=== PATIENT | male | born 1945 | race Caucasian/White ===

== ENCOUNTER 2022-04-14 20:03 | Inpatient (IN) | payer OTHER, MEDICARE ==
[~2022-04-14] VITALS: Ht 198.1 cm; Wt 102.1 kg
[2022-04-14 20:37] VITALS: BP_SYST 153
--- NOTE | 2022-04-14 22:06 | NUR ---
Patient to ER bed 3 to gown for evaluation. Side rails up. Report given to ELAINA ZALDIVAR
--- NOTE | 2022-04-14 22:30 | NUR ---
CHICHI Pascual at bedside examining patient.
[2022-04-15] VITALS (7 sets, daily range): BP systolic 104–148
[2022-04-15 00:45] LABS: BASOPHILS # (AUTO) 0.1 K/uL (0.0-0.2); BASOPHILS % (AUTO) 0.4 % (0.0-2.0); EOSINOPHILS % (AUTO) 0.1 % (0.0-4.0); HEMATOCRIT 39.9 % (36-54); HEMOGLOBIN 13.3 g/dL (14.0-18.0); LYMPHOCYTES # (AUTO) 0.5 K/uL (1.0-5.5); LYMPHOCYTES % (AUTO) 3.9 % (20.5-51.5); MEAN CORPUSCULAR HEMOGLOBIN 30 pg (27-31); MEAN CORPUSCULAR HGB CONC 33 % (32-36); MEAN CORPUSCULAR VOLUME 89 fL (79.0-98.0); MONOCYTES # (AUTO) 0.9 K/uL (0.0-1.0); MONOCYTES % (AUTO) 6.7 % (1.7-9.3); NEUTROPHILS # (AUTO) 12.3 K/uL (1.8-7.7); NEUTROPHILS % (AUTO) 88.9 % (40.0-70.0); PLATELET COUNT (AUTO) 185 K/uL (130-430); RED BLOOD CELL COUNT(AUTO) 4.49 MIL/uL (4.2-6.2); RED CELL DISTRIBUTION WIDTH 15.2 % (9.0-15.0); WHITE BLOOD COUNT (AUTO) 13.9 K/uL (4.8-10.8)
[2022-04-15 00:56] LABS: BILIRUBIN,URINE NEGATIVE (NEGATIVE); BLOOD, URINE NEGATIVE (NEGATIVE); CLARITY/URINE CLEAR (CLEAR); COLOR,URINE YELLOW (YELLOW); GLUCOSE,URINE NEGATIVE (NEGATIVE); KETONES,URINE 1+ (NEGATIVE); LEUKOCYTE ESTERASE ,URINE NEGATIVE (NEGATIVE); NITRITE, URINE NEGATIVE (NEGATIVE); PH,URINE 5.5 (5.0-8.0); PROTEIN URINE TRACE (NEGATIVE); UROBILINOGEN,URINE 0.2 (0.2-1.0)
[2022-04-15 01:02] LABS: ANION GAP 9 (5-15); CALCIUM 8.6 mg/dL (8.4-11.0); CHLORIDE 100 mmol/L (98-107); GLUCOSE 131 mg/dL (70-99); POTASSIUM 4.3 mmol/L (3.5-5.1); SODIUM SERUM 136 mmol/L (136-145); UREA NITROGEN, BLOOD 31 mg/dL (8-21)
[2022-04-15] MEDS ORDERED: ONDANSETRON HCL 4 MG/2 ML VIAL IVP ONE ×2 (01:15)
[2022-04-15] MEDS ORDERED: MORPHINE 2 MG/ML INJ. SYRINGE IVP ONE ×2 (01:15)
[2022-04-15] MEDS ORDERED: NACL 0.9% 1,000 ML IV ONE ×2 (01:15)
[2022-04-15] MEDS ORDERED: NACL 0.9% 2,000 ML IV ONE (01:15)
[2022-04-15] MEDS ORDERED: PIPERACILLIN/TAZO 3.375 GM in NS 50 ML IV ONE (01:15)
[2022-04-15 01:17] LABS: ALANINE AMINOTRANSFERASE 17 U/L (12-78); ALBUMIN 3.5 g/dL (3.4-4.8); ASPARTATE AMINOTRANSFERASE 20 U/L (10-37); LIPASE 73 U/L (73-393); TOTAL BILIRUBIN 0.7 mg/dL (0.0-1.0)
[2022-04-15] MEDS ORDERED: KCL 20 mEq in D5NS 1000 mL 1,000 ML IV SCH (01:30)
[2022-04-15] MEDS ORDERED: HYDROmorphone 1 MG/ML INJ. CARTRIDGE IVP PRN (01:30)
[2022-04-15] MEDS ORDERED: PIPERACILLIN/TAZOBACTAM 3.375 GM/VIAL (ZOSYN) IV ONE (01:33)
--- NOTE | 2022-04-15 02:05 | NUR ---
Pt C/O RUQ pain Pt in apparent pain Pt medicated and all needs met at this time AOX4 VSS NAD at this time Will continue to monitor
--- NOTE | 2022-04-15 03:05 | NUR ---
Admit bed requested Patient will be admitted to care of . Admitted to TELE unit. Diagnosis NEPHROTIC APPENDICITIS Inpatient (Yes or No) Y Observation (Yes or No) N Orientation concerns or request close to nursing station (Yes or No) N Covid Status PENDING On vent or bipap N Isolation requirements N Needs a sitter N From Home (Yes or if No enter name of facility) Y Requires Dialysis (Yes or No) N Med Rec Completed (Yes of No) Y
--- NOTE | 2022-04-15 04:20 | NUR ---
Pt prep for OR transport Pt cleansed w/ CHG Pt resting comfortably in bed at this time VSS NAD Will continue to monitor
[2022-04-15] MEDS ORDERED: BUPIVACAINE LIPOSOME/PF 266 MG/20 ML VIAL INFIL ONE (04:50)
[2022-04-15] MEDS ORDERED: SEVOFLURANE 15 MIN GAS INH ONE (05:25)
[2022-04-15] MEDS ORDERED: LABETALOL 100 MG/ 20ML VIAL ONE (05:25)
[2022-04-15] MEDS ORDERED: ROCURONIUM BROMIDE 10 MG/ML (ZEMURON) ONE (05:25)
[2022-04-15] MEDS ORDERED: NS 1000 ML IV.SOLN IV ONE (05:25)
[2022-04-15] MEDS ORDERED: MIDAZOLAM HCL 2 MG/2 ML VIAL (VERSED) ONE (05:25)
[2022-04-15] MEDS ORDERED: fentaNYL CITRATE/PF 100 MCG/2 ML AMP ONE ×2 (05:25→06:54)
[2022-04-15] MEDS ORDERED: PROPOFOL 200MG/ 20ML VIAL (DIPRIVAN) IV ONE (05:25)
--- NOTE | 2022-04-15 05:28 | NUR ---
Pt admitted for surgery Consent for surgery and Blood transfusion obtained AOX4 VSS NAD at this time Pt transported to OR via gurgey by 2 OR nurses
[2022-04-15] MEDS ORDERED: METOCLOPRAMIDE HCL 10 MG/2 ML VIAL IVP PRN (06:00)
[2022-04-15] MEDS ORDERED: ONDANSETRON HCL 4 MG/2 ML VIAL IVP PRN (06:00)
[2022-04-15] MEDS ORDERED: fentaNYL CITRATE/PF 100 MCG/2 ML AMP IVP PRN (06:00)
[2022-04-15] MEDS ORDERED: LR 1,000 ML IV SCH (06:45)
[2022-04-15] MEDS ORDERED: NALOXONE HCL 0.4 MG/ML AMP (NARCAN) IVP PRN (06:45)
[2022-04-15] MEDS: fentaNYL CITRATE/PF 100 MCG/2 ML AMP IVP PRN ×2 (06:57→07:18)
[2022-04-15 07:10] LABS: BASOPHILS % (AUTO) 0.3 % (0.0-2.0); EOSINOPHILS % (AUTO) 0.1 % (0.0-4.0); HEMATOCRIT 37.7 % (36-54); HEMOGLOBIN 12.6 g/dL (14.0-18.0); LYMPHOCYTES # (AUTO) 0.8 K/uL (1.0-5.5); LYMPHOCYTES % (AUTO) 6.8 % (20.5-51.5); MEAN CORPUSCULAR HEMOGLOBIN 30 pg (27-31); MEAN CORPUSCULAR HGB CONC 34 % (32-36); MEAN CORPUSCULAR VOLUME 89 fL (79.0-98.0); MONOCYTES # (AUTO) 0.8 K/uL (0.0-1.0); MONOCYTES % (AUTO) 6.4 % (1.7-9.3); NEUTROPHILS # (AUTO) 10.3 K/uL (1.8-7.7); NEUTROPHILS % (AUTO) 86.4 % (40.0-70.0); PLATELET COUNT (AUTO) 165 K/uL (130-430); RED BLOOD CELL COUNT(AUTO) 4.25 MIL/uL (4.2-6.2); RED CELL DISTRIBUTION WIDTH 15.2 % (9.0-15.0); WHITE BLOOD COUNT (AUTO) 11.9 K/uL (4.8-10.8)
[2022-04-15 07:17] LABS: ANION GAP 11 (5-15); CALCIUM 7.9 mg/dL (8.4-11.0); CHLORIDE 105 mmol/L (98-107); CREATININE 1.16 mg/dL (0.55-1.30); GLUCOSE 128 mg/dL (70-99); POTASSIUM 4.2 mmol/L (3.5-5.1); SODIUM SERUM 138 mmol/L (136-145); UREA NITROGEN, BLOOD 26 mg/dL (8-21)
[2022-04-15] MEDS ORDERED: PIPERACILLIN/TAZO 3.375 GM in NS 50 ML IV SCH (08:00)
--- NOTE | 2022-04-15 08:10 | NUR ---
Initial Notes Patient admitted to unit, came from surgery. appendectomy. Pt is awake, alert, and oriented. Denies any SOB. Breathing is even and non labored. Spo2 on 94% on RA. No F/C. Pt states pain only when moving, pain is tolerable at the moment. Pt oriented to room, call light, incentive spirometer use, and JOSÉ MIGUEL care. Safety precautions in place. pt aware to call for assistance.
--- NOTE | 2022-04-15 09:00 | NUR ---
JOSÉ MIGUEL drain Empty JOSÉ MIGUEL with serosanguineous drainage. Teach patient on how to empty drain. Verbalize understanding.
[2022-04-15] MEDS: HYDROmorphone 1 MG/ML INJ. CARTRIDGE IVP PRN ×3 (10:03→21:17)
[2022-04-15] MEDS: PIPERACILLIN/TAZO 3.375/DEX-IS 50 ML IV SCH ×3 (12:00→23:27)
[2022-04-15] MEDS: KCL 20 mEq in D5NS 1000 mL 1,000 ML IV SCH ×2 (12:01→23:32)
[2022-04-15] MEDS ORDERED: CARV25TA55 PO (12:18)
[2022-04-15] MEDS ORDERED: TRAZ-251 PO (12:18)
[2022-04-15] MEDS ORDERED: ARIP5TAB10 PO (12:18)
[2022-04-15] MEDS ORDERED: ESCI20TA PO (12:18)
[2022-04-15] MEDS ORDERED: FURO-149 PO (12:18)
[2022-04-15] MEDS ORDERED: LOSA100T23 PO (12:18)
[2022-04-15] MEDS ORDERED: TAMS-11 PO (12:18)
--- NOTE | 2022-04-15 12:19 | NUR ---
Notes patient assisted to the bathroom and voided. No distress. complain of some moderate pain. will medicate.
[2022-04-15] MEDS: HYDROcodone/ACETAMIN 5-325 MG TAB (NORCO/ VICODIN) PO PRN ×3 (12:29→23:51)
--- NOTE | 2022-04-15 12:30 | NUR ---
Notes Patient in bed, stated pain to abdomen. Medicated pt. Pt is using Incentive spirometer. will reassess and monitor pain.
[2022-04-15] MEDS ORDERED: ACETAMINOPHEN 325 MG TABLET PO PRN (14:00)
[2022-04-15] MEDS ORDERED: PIPERACILLIN/TAZO 3.375/DEX-IS 50 ML IV SCH (18:00)
--- NOTE | 2022-04-15 18:23 | NUR ---
CLOSING NOTES PATIENT IN BED, ALERT, AWAKE, ORIENTED. PT STATED PAIN IN ABDOMEN, MEDICATED PT. NO S/S OF RESPIRATORY DISTRESS. NO SOB. PT CONTINUES TO BE NPO. JOSÉ MIGUEL DRAIN EMPTIED. SAFETY PRECAUTIONS IN PLACE AND CALL LIGHT WITHIN REACH.
--- NOTE | 2022-04-15 19:30 | NUR ---
OPENING NOTES: Patient received from AM shift nurse. Patient is AA&Ox4 able to communicate needs, Denies any chest pain or SOB. Patient is post surgical after a lap appendectomy and has a JOSÉ MIGUEL drain for drainage. Surgical site is also noted on the abdomen and is C/D/I. Patient is ambulatory and continent of B&B. Patient has hypo active BS and has yet to pass gas per report. Patient is currently stable at this time. Safety protocols are in place and will resume care and monitor patient throughout the shift.
[2022-04-15] MEDS ORDERED: ENOXAPARIN SODIUM 40 MG/0.4 ML SYRINGE SUBCUT SCH (21:00)
[2022-04-16 01:00] VITALS: BP_SYST 147
[2022-04-16] MEDS: HYDROmorphone 1 MG/ML INJ. CARTRIDGE IVP PRN ×2 (04:33→12:03)
[2022-04-16] MEDS: PIPERACILLIN/TAZO 3.375/DEX-IS 50 ML IV SCH ×2 (05:28→11:56)
--- NOTE | 2022-04-16 07:37 | NUR ---
CLOSING NOTES: Patient is in bed resting no s/s of distress at this time. Patient is able to communicate needs and denies any pain or distress at this time. Patient has a JOSÉ MIGUEL drain and 170ml was emptied throughout the shift. All current shift needs have been met at this time, and patient is stable at this time. Will differ current care to AM shift nurse for continuity of care.
[2022-04-16 08:12] VITALS: BP_SYST 163
[2022-04-16 09:17] LABS: ANION GAP 7 (5-15); CALCIUM 8.4 mg/dL (8.4-11.0); CHLORIDE 107 mmol/L (98-107); CREATININE 1.26 mg/dL (0.55-1.30); GLUCOSE 142 mg/dL (70-99); POTASSIUM 4.6 mmol/L (3.5-5.1); SODIUM SERUM 140 mmol/L (136-145); UREA NITROGEN, BLOOD 25 mg/dL (8-21)
--- NOTE | 2022-04-16 09:25 | NUR ---
PT AMBULATING INSIDE ROOM, JOSÉ MIGUEL DRAINED, 110CC OF SEROSANGUINOUS FLUID DRAINED. NO BM , NO PASSING GAS YET. WILL CONT TO MONITOR.
--- NOTE | 2022-04-16 10:31 | NUR ---
PT REPORTED THAT HE ALREADY PASSED GAS, PT ASSISTED WITH A NEW GOWN AND PUTTING HIS SHORTS, PT NOW WALKING IN THE HALLWAY.
[2022-04-16 11:45] LABS: BASOPHILS % (AUTO) 0.3 % (0.0-2.0); EOSINOPHILS # (AUTO) 0.1 K/uL (0.0-0.4); EOSINOPHILS % (AUTO) 0.8 % (0.0-4.0); HEMATOCRIT 38.2 % (36-54); HEMOGLOBIN 12.8 g/dL (14.0-18.0); LYMPHOCYTES # (AUTO) 0.6 K/uL (1.0-5.5); LYMPHOCYTES % (AUTO) 6.3 % (20.5-51.5); MEAN CORPUSCULAR HEMOGLOBIN 30 pg (27-31); MEAN CORPUSCULAR HGB CONC 33 % (32-36); MEAN CORPUSCULAR VOLUME 89 fL (79.0-98.0); MONOCYTES # (AUTO) 0.5 K/uL (0.0-1.0); MONOCYTES % (AUTO) 5.7 % (1.7-9.3); NEUTROPHILS # (AUTO) 8.4 K/uL (1.8-7.7); NEUTROPHILS % (AUTO) 86.9 % (40.0-70.0); PLATELET COUNT (AUTO) 164 K/uL (130-430); RED CELL DISTRIBUTION WIDTH 15.1 % (9.0-15.0); WHITE BLOOD COUNT (AUTO) 9.7 K/uL (4.8-10.8)
[2022-04-16 12:57] VITALS: BP_SYST 152
--- NOTE | 2022-04-16 14:04 | NUR ---
ATTENDING MD DR SEGOVIA WAS CALLED, RE: DISCHARGE ORDER AND PRESCRIPTION.
--- NOTE | 2022-04-16 14:06 | NUR ---
Paged dr Craven for dc home order.
[2022-04-16] MEDS ORDERED: LEVO750T45 PO (15:12)
[2022-04-16] MEDS ORDERED: FLAPM500 PO (15:14)
[2022-04-16 15:30] VITALS: BP_SYST 146
--- NOTE | 2022-04-16 15:49 | NUR ---
Spoke to patient, he was given a choice for home health services. He agreed to [facility].
[2022-04-16 15:55] VITALS: BP_SYST 146
--- NOTE | 2022-04-16 15:55 | NUR ---
Discharge Planning: DCP faxed pt referral to [facility] P#[phone] DCP to follow up
--- NOTE | 2022-04-16 16:22 | NUR ---
D/C Patient Patient given medication reconciliation form and D/C instructions. Exit Care provided. Patient verbalized understanding. MD discussed with patient the results and treatment provided. Ambulatory with steady gait for discharge to home. Patient in stable condition, ID band removed. IV catheter removed, intact and dressing applied, no active bleeding. Rx of LEVAQUIN, FLAGYL given. Patient educated on pain management. All belongings sent with patient.
--- NOTE | 2022-04-24 10:15 | NUR ---
Customer Program Specialist PHARMACY BUYER made a Post Discharge Follow-Up Phone Call to speak to former pt. Delfin who stated he is doing ok and has a follow up apt. with his PCP, Dr. Doe and his tube will be taken out. Delfin stated he has taken his meds and only has 2 pills left of one of them (flagly, levaquin). HH is coming to [facility] every other day.
== END 2022-04-16 16:22 | disposition home health service (06) | DRG 338 ==
LOC: SED 20:03 → STU 04-15 01:19
PROVIDERS: ADMIT Family Medicine; ATTEND Family Medicine
PROC: 3E1M48Z Irrigation of Peritoneal Cavity using Irrigating Substance, Percutaneous Endoscopic Approach (ICD-10-PCS; 2022-04-15)
PROC: 0DTJ4ZZ Resection of Appendix, Percutaneous Endoscopic Approach (ICD-10-PCS; principal; 2022-04-15 05:57)
DX: K35.32 Acute appendicitis with perforation, localized peritonitis, and gangrene, without abscess (principal); N17.0 Acute kidney failure with tubular necrosis; I10 Essential (primary) hypertension; F32.A Depression, unspecified; Z20.822 Contact with and (suspected) exposure to COVID-19
CPT/HCPCS: 36415; 71045; 76376; 80048; 80053; 81003; 83605; 83690; 85025; 85610-TC; 85730-TC; 86886; 86900; 86901; 87040; 87070-TC; 87075-TC; 87081; 87186-TC; 88304; 93005; 96361; 96365; 96375; 96376; 99291; C1727; C9290; G0378; J1170; J1650; J2270; J2405; J2543; J2704; J3010; J3465; J3490; J7030